=== PATIENT | male | born 1990 ===

== ENCOUNTER 2017-03-07 03:22 | Emergency (ER) | payer OTHER ==
[2017-03-07 03:53] VITALS: BP 125/65
== END 2017-03-07 03:53 | disposition other institution (70) ==
LOC: ED 03:22
DX: Z02.89 Encounter for other administrative examinations (principal); V23.4XXA Motorcycle driver injured in collision with car, pick-up truck or van in traffic accident, initial encounter; Y93.89 Activity, other specified; Y99.8 Other external cause status; Y92.89 Other specified places as the place of occurrence of the external cause